=== PATIENT | female | born 1960 | race Two or more races ===

== ENCOUNTER 2020-09-22 23:44 | Emergency (ER) | payer MEDICAID, OTHER ==
[~2020-09-22] VITALS: Ht 149.9 cm; Wt 59.0 kg
[2020-09-23 00:34] VITALS: BP 160/79
== END 2020-09-23 02:20 | disposition home or self-care (01) ==
LOC: ER 23:44
DX: S81.012A Laceration without foreign body, left knee, initial encounter (principal); I10 Essential (primary) hypertension; W19.XXXA Unspecified fall, initial encounter; Y93.89 Activity, other specified; Y92.89 Other specified places as the place of occurrence of the external cause; Y99.8 Other external cause status
CPT/HCPCS: 12002; 73560